=== PATIENT | male | born 1960 | race Caucasian/White ===

== ENCOUNTER 2017-10-21 01:06 | Emergency (ER) | payer OTHER ==
[~2017-10-21] VITALS: Ht 177.8 cm; Wt 58.3 kg
[2017-10-21 01:08] VITALS: BP 133/76
[2017-10-21 02:02] LABS: BASOPHILS # (AUTO) 0.05 x10^3/uL (0-0.1); BASOPHILS % (AUTO) 1 % (0-1); EOSINOPHILS # (AUTO) 0.15 x10^3/uL (0-0.4); EOSINOPHILS % (AUTO) 1 % (1-7); LYMPHOCYTES # (AUTO) 2.35 x10^3/uL (1-3.4); LYMPHOCYTES % (AUTO) 22 % (22-44); MD NO; MEAN CORPUSCULAR HEMOGLOBIN 31.7 pg (27.5-34.5); MEAN CORPUSCULAR VOLUME 95.9 fL (81-97); MEAN PLATELET VOLUME 8.3 fL (7.4-10.4); MONOCYTES % (AUTO) 9 % (2-9); NEUTROPHILS # (AUTO) 7.37 x10^3/uL (1.8-6.8); NEUTROPHILS % (AUTO) 68 % (42-75); PLATELET COUNT 230 x10^3/uL (130-400); RED BLOOD COUNT 4.55 x10^6/uL (4.38-5.82); RED CELL DISTRIBUTION WIDTH 13.5 % (9.4-14.8)
[2017-10-21 02:11] LABS: ALBUMIN 3.5 g/dL (3.4-5.0); ANION GAP 7 mmol/L (5-15); CALCIUM 7.9 mg/dL (8.5-10.1); CHLORIDE 108 mmol/L (98-107); CREATININE 0.87 mg/dL (0.7-1.3)
[2017-10-21 02:15] LABS: TROPONIN I < 0.015 ng/mL (0.000-0.045)
== END 2017-10-21 03:48 | disposition home or self-care (01) ==
LOC: ED 03:46
DX: J44.1 Chronic obstructive pulmonary disease with (acute) exacerbation (principal); R05 Cough; Z88.0 Allergy status to penicillin
CPT/HCPCS: 36415; 71046; 80048; 82040; 84484; 85025; 99285

== ENCOUNTER 2018-03-19 12:10 | Emergency (ER) | payer OTHER ==
[~2018-03-19] VITALS: Ht 177.8 cm; Wt 57.2 kg
[2018-03-19 12:11] VITALS: BP 162/80
[2018-03-19] MEDS ORDERED: HYDROcodone/APAP 5/325 TABLET ONE (12:50)
[2018-03-19] MEDS ORDERED: HYDROcodone/APAP 5/325 TABLET PO ONE (13:00)
== END 2018-03-19 13:00 | disposition home or self-care (01) ==
LOC: ED 12:20
DX: K02.9 Dental caries, unspecified (principal); K08.89 Other specified disorders of teeth and supporting structures; J44.9 Chronic obstructive pulmonary disease, unspecified; F17.210 Nicotine dependence, cigarettes, uncomplicated; Z89.029 Acquired absence of unspecified finger(s)
CPT/HCPCS: 99283

== ENCOUNTER 2018-11-06 07:10 | Emergency (ER) | payer SELFPAY ==
[~2018-11-06] VITALS: Ht 177.8 cm; Wt 58.3 kg
[2018-11-06] MEDS ORDERED: ONDANSETRON ODT 4 MG ONE (07:43)
[2018-11-06] MEDS ORDERED: MECLIZINE CHEWABLE 25 MG TAB ONE (07:43)
--- NOTE | 2018-11-06 07:48 | NUR ---
PATIENT TAKEN TO CT SCAN AFTER MEDICATION ADMIN
--- NOTE | 2018-11-06 07:58 | NUR ---
PATIENT FROM CT SCAN. UPDATED ON PLAN OF CARE
[2018-11-06] MEDS ORDERED: ONDANSETRON ODT 8 MG PO ONE (08:00)
[2018-11-06] MEDS ORDERED: MECLIZINE CHEWABLE 25 MG TAB PO ONE (08:00)
[2018-11-06 08:14] LABS: BASOPHILS # (AUTO) 0.12 x10^3/uL (0-0.1); BASOPHILS % (AUTO) 1 % (0-1); EOSINOPHILS # (AUTO) 0.04 x10^3/uL (0-0.4); EOSINOPHILS % (AUTO) 1 % (1-7); LYMPHOCYTES % (AUTO) 20 % (22-44); MD NO; MEAN CORPUSCULAR HEMOGLOBIN 30.9 pg (27.5-34.5); MEAN CORPUSCULAR HGB CONC 32.8 g/dL (33.2-36.2); MEAN CORPUSCULAR VOLUME 94.2 fL (81-97); MEAN PLATELET VOLUME 8.3 fL (7.4-10.4); MONOCYTES # (AUTO) 0.69 x10^3/uL (0.2-0.8); MONOCYTES % (AUTO) 8 % (2-9); NEUTROPHILS # (AUTO) 5.89 x10^3/uL (1.8-6.8); NEUTROPHILS % (AUTO) 70 % (42-75); PLATELET COUNT 253 x10^3/uL (130-400); RED BLOOD COUNT 4.92 x10^6/uL (4.38-5.82); RED CELL DISTRIBUTION WIDTH 14.3 % (9.4-14.8)
[2018-11-06 08:24] LABS: ALBUMIN 3.6 g/dL (3.4-5.0); ANION GAP 3 mmol/L (5-15); CALCIUM 8.8 mg/dL (8.5-10.1); CHLORIDE 112 mmol/L (98-107); CREATININE 0.92 mg/dL (0.7-1.3)
--- NOTE | 2018-11-06 08:45 | NUR ---
REPORT TO JACKY GRANADOS
--- NOTE | 2018-11-06 08:54 | NUR ---
ASSUMED CARE. AWAITING CTA AT THIS TIME
[2018-11-06] MEDS ORDERED: SODIUM CHLORIDE FLUSH 10ML SYR IVF ONE (09:00)
[2018-11-06] MEDS ORDERED: OMNIPAQUE 350 MG/ML, 100ML BOTTLE ONE (09:04)
--- NOTE | 2018-11-06 09:11 | NUR ---
PT STATES ESPECIALLY WHEN LYING DOWN, PT GETS SENSATION HE IS UPSIDE DOWN AND "IT SCARES THE HECK OUT OF ME" IT WAS WORSE TODAY SO HE CAME TO ER. NO COMPLAINTS AT THIS TIME. CTA COMPLETED
--- NOTE | 2018-11-06 09:53 | NUR ---
Patient given discharge instructions and they have confirmed that they understand the instructions. Patient ambulatory with steady gait.
[2018-11-06 09:54] VITALS: BP 143/79
== END 2018-11-06 09:55 | disposition home or self-care (01) ==
LOC: ED 08:15
DX: G44.219 Episodic tension-type headache, not intractable (principal); R42 Dizziness and giddiness; F17.210 Nicotine dependence, cigarettes, uncomplicated; J44.9 Chronic obstructive pulmonary disease, unspecified
CPT/HCPCS: 36415; 70450; 70498; 80048; 82040; 85025; 93005; 99284; Q0162; Q9967

== ENCOUNTER 2019-01-22 08:05 | Emergency (ER) | payer OTHER ==
[~2019-01-22] VITALS: Ht 177.8 cm; Wt 58.4 kg
[2019-01-22 09:02] VITALS: BP 130/71
--- NOTE | 2019-01-22 09:03 | NUR ---
Patient given discharge instructions and they have confirmed that they understand the instructions. Patient ambulatory with steady gait.
== END 2019-01-22 09:34 | disposition home or self-care (01) ==
LOC: ED 08:52
DX: J01.11 Acute recurrent frontal sinusitis (principal); J00 Acute nasopharyngitis [common cold]; B97.89 Other viral agents as the cause of diseases classified elsewhere; F17.200 Nicotine dependence, unspecified, uncomplicated; J44.9 Chronic obstructive pulmonary disease, unspecified
CPT/HCPCS: 71046; 93005; 99283